=== PATIENT | female | born 1965 | race Hispanic/Latino ===

== ENCOUNTER → 2025-02-19 | Outpatient (CLI) | payer OTHER, MEDICARE ==
--- NOTE | 2025-02-23 20:19 | HMCIMG ---
EXAM: Nuclear Medicine Gastric Emptying Scan. INDICATION: Epigastric pain, nausea. REFERENCE EXAMINATION: None. TECHNIQUE: 2.1 mCi of Tc99m sulfur colloid with egg whites, 2 slices of bread/jam, 4 ounces of water. FINDINGS: The transit of radiopharmaceuticals is seen from the stomach into the small bowel. Gastric emptying is not achieved at 50% during the study period. IMPRESSION: Scintigraphic findings suggest gastroparesis. /[facility] [facility]
== END | disposition home or self-care (01) ==
LOC: RAH 07:11
PROVIDERS: ATTEND Internal Medicine Gastroenterology
DX: R10.13 Epigastric pain (principal); R14.0 Abdominal distension (gaseous); R11.0 Nausea; R10.11 Right upper quadrant pain
CPT/HCPCS: 78264; A9541